=== PATIENT | female | born 1955 | race African-American/Black ===

== ENCOUNTER → 2023-07-07 14:35 | Outpatient (REF) | payer MEDICARE, SELFPAY | LOC: RCS 14:35 | PROVIDERS: ATTENDING PHYSICIAN Nurse Practitioner Family | DX: M79.602 Pain in left arm (principal); I49.9 Cardiac arrhythmia, unspecified; M54.12 Radiculopathy, cervical region | CPT/HCPCS: 72050; 93005 ==

== ENCOUNTER → 2023-07-08 08:55 | Outpatient (REF) | payer MEDICARE, SELFPAY ==
[2023-07-08 09:48] LABS: Urine Albumin Negative (Neg - Trace); Urine Bilirubin Negative (Negative); Urine Character Clear (Clear); Urine Color Yellow; Urine Glucose Negative (Negative); Urine Ketone Negative (Negative); Urine Leukocyte Negative (Negative); Urine Nitrite Negative (Negative); Urine Occult Blood Trace (Negative); Urine Specific Gravity 1.015 (<1.030); Urine Urobilinogen Negative (Neg - 1+)
[2023-07-08 09:57] LABS: % Basophils 0.4 % (0-2); % Eosinophils 2.1 % (0-6); % Immature Granulocytes 0.2 % (0-0.5); % Lymphocytes 32.1 % (20.5-51.1); % Monocytes 6.2 % (1.7-9.3); Absolute Eosinophils 0.1 10^3/uL (0-0.7); Absolute Lymphocytes 1.5 10^3/uL (1.2-3.4); Absolute Monocytes 0.3 10^3/uL (0.1-0.6); Absolute Neutrophils 2.8 10^3/uL (1.4-6.5); Hematocrit 40.4 % (37.0-47.0); Mean Corp Hgb Conc. 32.2 g/dL (33.0-37.0); Mean Platelet Volume 9.5 fL (7.4-10.4); Nucleated Red Blood Cells % 0 %; Platelet Count 395 10^3/uL (130-400); Red Blood Cell Count 4.49 10^6/uL (4.20-5.40); Red Cell Dist. Width 14.5 % (11.5-14.5); White Blood Cell Count 4.7 10^3/uL (4.8-10.8)
[2023-07-08 10:27] LABS: ALT (SGPT) 26 U/L (0-35); AST (SGOT) 28 U/L (14-36); Alkaline Phosphatase 85 U/L (38-126); Blood Urea Nitrogen 16 mg/dl (7-17); Calcium 10.2 mg/dl (8.4-10.2); Carbon Dioxide 30 mmol/L (22-30); Chloride 100 mmol/L (98-107); Glucose 97 mg/dl (70-99); HDL Cholesterol 63 mg/dl; LDL Cholesterol, Calculated 136 mg/dl; Sodium 139 mmol/L (135-145); Total Bilirubin 0.7 mg/dl (0.2-1.3); Total Cholesterol 218 mg/dl (50-199); Total Protein 7.7 g/dl (6.3-8.2); Triglyceride 98 mg/dl (10-149); Very Low Density Lipoprotein 19 mg/dl (0-30); eGFR 55.07
[2023-07-08 10:57] LABS: TSH Reflex To Free T4 0.84 uIU/ml (0.47-4.68)
[2023-07-08 11:01] LABS: Urine Red Blood Cell 0-2 /HPF (0-2)
[2023-07-08 11:02] LABS: Urine White Cell 0-2 /HPF (0-5)
[2023-07-08 11:03] LABS: Urine Squamous Cell 21-25 /LPF (Few)
== END ==
LOC: REG 08:55
PROVIDERS: ATTENDING PHYSICIAN Nurse Practitioner Family
DX: I49.9 Cardiac arrhythmia, unspecified (principal); I10 Essential (primary) hypertension; E66.9 Obesity, unspecified; Z01.89 Encounter for other specified special examinations
CPT/HCPCS: 36415; 80053; 80061; 81003; 81015; 84443; 85025

== ENCOUNTER → 2023-08-04 09:23 | Outpatient (REF) | payer MEDICARE, SELFPAY ==
[2023-08-04 11:06] LABS: ALT (SGPT) 19 U/L (0-35); AST (SGOT) 28 U/L (14-36); Albumin 3.9 g/dl (3.5-5.0); Alkaline Phosphatase 82 U/L (38-126); Blood Urea Nitrogen 19 mg/dl (7-17); Calcium 10.1 mg/dl (8.4-10.2); Carbon Dioxide 30 mmol/L (22-30); Chloride 102 mmol/L (98-107); Glucose 99 mg/dl (70-99); HDL Cholesterol 75 mg/dl; LDL Cholesterol, Calculated 138 mg/dl; Potassium 4.1 mmol/L (3.5-5.1); Sodium 140 mmol/L (135-145); Total Bilirubin 0.7 mg/dl (0.2-1.3); Total Cholesterol 232 mg/dl (50-199); Total Protein 8.1 g/dl (6.3-8.2); Triglyceride 96 mg/dl (10-149); Very Low Density Lipoprotein 19 mg/dl (0-30)
[2023-08-04 11:14] LABS: eGFR > 60.00
[2023-08-06 13:01] LABS: Quantiferon Mitogen minus NIL 9.31 IU/mL; Quantiferon NIL 0.02 IU/mL; Quantiferon TB Gold Plus Negative (Negative)
== END ==
LOC: REG 09:23
PROVIDERS: ATTENDING PHYSICIAN Nurse Practitioner Gerontology; FAMILY PHYSICIAN Nurse Practitioner Family
DX: L40.0 Psoriasis vulgaris (principal); E78.2 Mixed hyperlipidemia
CPT/HCPCS: 36415; 80053; 80061; 86480

== ENCOUNTER → 2023-10-10 07:56 | Outpatient (REF) | payer MEDICARE, SELFPAY | LOC: DHCBC/DCA 07:56 | PROVIDERS: ATTENDING PHYSICIAN Internal Medicine Cardiovascular Disease; FAMILY PHYSICIAN Internal Medicine | DX: R06.02 Shortness of breath (principal) | CPT/HCPCS: 78452; 93017; A9500 ==

== ENCOUNTER 2024-02-22 14:46 | Emergency (ER) | payer OTHER, SELFPAY ==
[2024-02-22 14:50] VITALS: BP 110/87
[2024-02-22 15:24] LABS: % Basophils 0.3 % (0-2); % Eosinophils 2.1 % (0-6); % Immature Granulocytes 0.8 % (0-0.5); % Lymphocytes 31.3 % (20.5-51.1); % Monocytes 6.9 % (1.7-9.3); % Neutrophils 58.6 % (42.2-75.2); Absolute Eosinophils 0.2 10^3/uL (0-0.7); Absolute Immature Granulocytes 0.1 10^3/uL (0-0.05); Absolute Lymphocytes 2.5 10^3/uL (1.2-3.4); Absolute Monocytes 0.6 10^3/uL (0.1-0.6); Absolute Neutrophils 4.7 10^3/uL (1.4-6.5); Hematocrit 34.8 % (37.0-47.0); Hemoglobin 11.9 g/dL (12.0-16.0); Mean Corp Hgb Conc. 34.2 g/dL (33.0-37.0); Mean Corpuscular Hgb 28.7 pg (27.0-31.0); Mean Corpuscular Volume 84.1 fL (81.0-99.0); Mean Platelet Volume 9.1 fL (7.4-10.4); Nucleated Red Blood Cells % 0 %; Platelet Count 356 10^3/uL (130-400); Red Blood Cell Count 4.14 10^6/uL (4.20-5.40); Red Cell Dist. Width 14.1 % (11.5-14.5); White Blood Cell Count 7.9 10^3/uL (4.8-10.8)
[2024-02-22 15:43] LABS: Troponin I < 0.012 ng/ml
[2024-02-22 15:44] LABS: ALT (SGPT) 22 U/L (0-35); AST (SGOT) 32 U/L (14-36); Albumin 4.5 g/dl (3.5-5.0); Alkaline Phosphatase 115 U/L (38-126); Blood Urea Nitrogen 17 mg/dl (7-17); Calcium 9.9 mg/dl (8.4-10.2); Carbon Dioxide 21 mmol/L (22-30); Chloride 103 mmol/L (98-107); Glucose 93 mg/dl (70-99); Sodium 141 mmol/L (135-145); Total Bilirubin 0.4 mg/dl (0.2-1.3); Total Protein 8.1 g/dl (6.3-8.2); eGFR 54.73
[2024-02-22 16:00] VITALS: BP 122/76
--- NOTE | 2024-02-22 16:24 | ED.GENMED ---
History of Present Illness
General
Chief Complaint: Breathing Problem
Source: patient
Exam Limitations: none
Time Seen by Provider: 02/22/24 16:10
Nursing documentation reviewed up to this point in time: agreed with
History of Present Illness
History of Present Illness:
68-year-old female presents emergency department complaining of a cough ongoing for 1 month. She was seen at primary care in urgent care, and treated with albuterol inhaler and told to take allergy medications.
Past History
Past History
ED Past Medical History: HTN
ED Past Surgical History: Gynecological
Social History
Tobacco: Non-smoker
Alcohol: None
Drug: None
Personal:
Living: with family
Employment: Employed
Family History
Family History: Other (Mother with CABG)
Review of Systems
Review of Systems
Allergies reviewed?: Yes
All Other Systems: Not applicable
Constitutional: Reports no symptoms; Denies fever
EENT: Reports no symptoms
Respiratory: Reports cough and trouble breathing
Cardiac: Reports no symptoms
ABD/GI: Reports no symptoms
: Reports no symptoms
Musculoskeletal: Reports no symptoms
Skin: Reports no symptoms
Neurological: Reports no symptoms
Endocrine: Reports no symptoms
Hematologic/Lymphatic: Reports no symptoms
Psychiatric: Reports no symptoms
Phy Exam
Physical Exam
Physical Exam:
Physical Exam
General: Moderate respiratory distress, afebrile
Neck: supple. no meningeal signs. normal posterior pharynx
Heart: s1/s2 regular rate and rhythm, no murmur. equal radial
pulses.
HEENT: Pupils equal round reactive to light, EOMI
Lungs: Moderate respiratory distress. clear bilaterally, cough
Abdomen: normal bowel sounds. not tender. no CVAT
Neuro: alert and oriented. no focal neurological deficits cranial nerves II through XII intact
Skin: no rash
Psychiatric: well kept. interactive and cooperative
Extremities: no edema. no calf tenderness. negative homans. good distal pulses
Scores
Heart Failure Risk
Heart Failure Risk Score: Not Applicable
Course
Orders/Labs/Results
Orders:
Orders
02/22/24 14:54
Electrocardiogram (*1) Urgent
Reason for Study: Chest Pain
EKG- Treatment ONCE
02/22/24 15:12
Complete Blood Count/With Diff Urgent
Comprehensive Metabolic Panel Urgent
Magnesium Urgent
Comment: ADD ON
Troponin I Urgent
02/22/24 16:11
Add On- LAB Urgent
Tests Added?: magnesium
CR Chest - 2 Views Urgent
Comment:
Reason For Exam: cough, short of breath
02/22/24 16:23
Ipratropium/Albuterol Sulfate [Duoneb] 3 ml INH R NOW STA
Prednisone [Deltasone] 50 mg PO NOW STA
02/22/24 16:26
Potassium Chloride [KCl] 40 meq PO NOW STA
02/22/24 17:31
Ipratropium/Albuterol Sulfate [Duoneb] 3 ml INH R NOW STA
Abnormal Lab Results
02/22/24
15:12
RBC 4.14 L 10^6/uL
(4.20-5.40)
Hgb 11.9 L g/dL
(12.0-16.0)
Hct 34.8 L %
(37.0-47.0)
Abs Immat Gran (auto) 0.1 H 10^3/uL
(0-0.05)
Immature Gran % 0.8 H %
(0-0.5)
Potassium 3.0 L mmol/L
(3.5-5.1)
Carbon Dioxide 21 L mmol/L
(22-30)
Creatinine 1.1 H mg/dL
(0.6-1.0)
02/22/24 15:12
02/22/24 15:12
Vital Signs
Initial and Last Documented VS:
Initial Vital Signs
Temp Pulse Resp BP Pulse Ox
98.5 F 98 32 110/87 100
02/22/24 14:50 02/22/24 14:50 02/22/24 14:50 02/22/24 14:50 02/22/24 14:50
Last Documented Vital Signs
Temp Pulse Resp BP Pulse Ox
98.5 F 98 20 120/78 98
02/22/24 14:50 02/22/24 18:00 02/22/24 19:08 02/22/24 18:00 02/22/24 19:08
MDM/Problems Addressed
Differential Diagnosis Includes:
Pneumonia, bronchitis
MDM/Problems Addressed:
68-year-old female with bronchospastic bronchitis. No signs of pneumonia. Patient improved after DuoNeb's and prednisone.
Chronic conditions affecting care: HTN
*Radiology
Radiology exam reviewed: radiology read reviewed (Chest x-ray no acute findings)
*Pulse Oximetry
Patient hypoxic: no
*EKG
Interpreted by ED Provider?: Yes
EKG Intrepretation Date: 02/22/24
EKG Intrepretation Time: 15:07
Interpretation: abnormal
Comparison EKG: no changes
Heart Rate: 104
Rate: tachycardiac
Rhythm: sinus tachycardia
S[place]ro [place]: normal axis
Interval: normal interval
QRS Pattern: normal QRS
Ischemia: no ischemia
*Emt/Paramedic Interpretation
Rate: normal
Interpretation: normal
Heart Rate: 98
Rhythm: sinus
*Critical Care Note
Total Time (30-74mins, 75-104mins- exclusive of procedures): Not Applicable
Data Reviewed
Prescriptions/Medications Considered But Not Given:
antibiotics not indicated
Further Testing Considered But Not Given:
ct chest not indicated
ED Attending Note
-
Portions of this chart may have been created with voice recognition software.� Occasional wrong word or��sound alike� substitutions may have occurred due to the inherent limitations of voice recognition software.
Discharge Plan
Departure
Patient Disposition: Home (Routine Discharge)
Date of Disposition: 02/22/24
Time of Disposition: 18:59
Patient with high blood pressure during this ER visit?: No
Condition: Good
Discharge Problem:
Acute bronchitis
Instructions: Acute Bronchitis, Adult (DC)
Prescriptions:
New
prednisone 50 mg tablet
50 mg PO DAILY Qty: 5 0RF
No Action
multivitamin [Akf-Jeuooz-Grnyj] 1 EACH tablet
1 ea PO DAILY
aspirin 81 MG tablet,delayed release (DR/EC)
81 mg PO BID
hydrocodone-acetaminophen [Vicodin] 1 EACH tablet
1 ea PO Q4HPRN PRN (Reason: pain) Qty: 15 0RF
Referrals:
Michael Gastelum DO [Family Provider] - Call in 1-3 days for appt
Interventions
Interventions:
*Risk Screen - Suicide Last Done: 02/22/24 14:50
*General Assessment Last Done: 02/22/24 16:03
*Neglect/Abuse Screening Last Done: 02/22/24 14:50
ED- Fall Risk Assessment Last Done: 02/22/24 19:08
*ED COVID-19 Vaccine History Last Done: 02/22/24 16:01
*Nursing Disposition Last Done: 02/22/24 19:08
ED- Cardiac Assessment Last Done: 02/22/24 16:03
ED- Pulmonary Assessment Last Done: 02/22/24 16:03
Discharge Date and Time
Discharge Date/Time: 02/22/24 19:14
Print Language: SAMI
[2024-02-22] MEDS: DELTASONE 50 MG PO (16:26)
[2024-02-22] MEDS: DUONEB 3 ML INH ×2 (16:27→17:34)
[2024-02-22] MEDS: KCL 40 MEQ PO (16:45)
[2024-02-22 18:00] VITALS: BP 120/78
== END 2024-02-22 19:14 | disposition home or self-care (01) ==
LOC: EMR 14:46
PROVIDERS: Emergency Medicine; EMERGENCY PHYSICIAN Emergency Medicine; FAMILY PHYSICIAN Internal Medicine
DX: J20.9 Acute bronchitis, unspecified (principal); I10 Essential (primary) hypertension; K57.92 Diverticulitis of intestine, part unspecified, without perforation or abscess without bleeding; Z88.6 Allergy status to analgesic agent; Z88.3 Allergy status to other anti-infective agents; Z88.0 Allergy status to penicillin; Z88.8 Allergy status to other drugs, medicaments and biological substances
CPT/HCPCS: 99284; 94640 ×2; 71046; 80053; 83735; 84484; 85025; 93005